=== PATIENT | male | born 1950 | race Caucasian/White ===

== ENCOUNTER 2025-07-05 08:06 | Emergency (ER) | payer MEDICARE, BC ==
[~2025-07-05] VITALS: Ht 175.3 cm; Wt 91.0 kg
[2025-07-05 08:13] VITALS: O2SAT 100
[2025-07-05] MEDS: KETOROLAC 15MG/ML VIAL IV ONE (08:23)
[2025-07-05 08:42] LABS: BASOPHILS % 0.6 % (0.0-2.0); EOSINOPHILS % 4.2 % (0.0-5.0); HEMATOCRIT. 48.9 % (42.0-52.0); HEMOGLOBIN. 16.1 g/dL (14.0-18.0); LYMPHOCYTES % 25.8 % (20.0-50.0); MEAN PLATELET VOLUME 9.0 fl (7.4-10.4); MONOCYTES % 9.7 % (2.0-8.0); NEUTROPHILS % 59.7 % (40.0-76.0); PLATELET 234 x1000/uL (130-400); RED BLOOD CELL COUNT 5.42 mill/uL (4.7-6.1); RED CELL DISTRIBUTION WIDTH 13.8 % (11.6-14.6)
[2025-07-05 08:49] LABS: CREATININE 2.0 mg/dL (0.6-1.3); UREA NITROGEN BLOOD 14 mg/dL (9-23)
[2025-07-05 08:51] LABS: ASPARTATE AMINOTRANSFERASE 20 IU/L (<34); BILIRUBIN DIRECT 0.2 mg/dL (<=3.0); BILIRUBIN TOTAL 0.7 mg/dL (0.1-1.0); PROTEIN TOTAL 8.0 g/dL (6.0-8.3)
[2025-07-05] MEDS ORDERED: P20 PO (09:18)
[2025-07-05] MEDS ORDERED: CYCL5TAB3 MT (09:18)
[2025-07-05] MEDS ORDERED: HYDR-4001 MT (09:18)
[2025-07-05] MEDS: PREDNISONE 20MG TABLET PO ONE (09:23)
[2025-07-05] MEDS: CYCLOBENZAPRINE 10MG TABLET PO ONE (09:23)
[2025-07-05 09:28] LABS: CLARITY URINE CLEAR (CLEAR); COLOR URINE YELLOW (YELLOW); GLUCOSE URINE 3+ (NEGATIVE); KETONES URINE TRACE (NEGATIVE); LEUKOCYTE ESTERASE URINE NEGATIVE (NEGATIVE); NITRITE URINE NEGATIVE (NEGATIVE); OCCULT BLOOD URINE NEGATIVE (NEGATIVE); PH URINE 5.5 (4.5-8.0); PROTEIN URINE 1+ (NEGATIVE); SPECIFIC GRAVITY URINE 1.029 (1.005-1.030); UROBILINOGEN URINE 1.0 E.U./dL (0.2-1.0)
[2025-07-05 09:31] VITALS: BP 128/72; PULSE 75; RESP 16; TEMP 36.7; O2SAT 98
[2025-07-05 09:46] LABS: FINE GRANULAR CASTS URINE 0-5 /lpf; MUCUS URINE 2+ /lpf (NONE/TRACE)
[2025-07-05 09:47] LABS: WBC URINE 0-2 /hpf (0-2)
[2025-07-05 09:48] LABS: BACTERIA URINE TRACE; RBC URINE NONE SEEN /hpf (0-2); SQUAMOUS EPITHELIAL CELL URINE FEW /lpf (RARE/1+)
== END 2025-07-05 09:32 | disposition home or self-care (01) ==
LOC: ER 08:06
DX: M54.9 Dorsalgia, unspecified (principal); I10 Essential (primary) hypertension; Z79.899 Other long term (current) drug therapy
CPT/HCPCS: 99285; 74176; 96374; 80076; 80048; 81003; 83690; 85025; 36415; J1885; J7512